=== PATIENT | female | born 1970 | race Caucasian/White ===

== ENCOUNTER → 2019-04-12 | Outpatient (CLI) | payer OTHER | LOC: ULTRA 11:25 | DX: K76.0 Fatty (change of) liver, not elsewhere classified (principal); K80.20 Calculus of gallbladder without cholecystitis without obstruction; R16.0 Hepatomegaly, not elsewhere classified ==

== ENCOUNTER 2019-05-30 09:38 | Day surgery (SDC) | payer OTHER ==
[~2019-05-30] VITALS: Ht 170.2 cm; Wt 108.4 kg
[~2019-05-30 09:38] MED LIST: ASPIR-LOW81 MG PO; CHLORTHALIDONE25 MG PO; LISINOPRIL20 MG PO; MEDROXYPRO150 MG/1 M IM; METFORMIN HCL500 M1 PO; ROSUVASTATIN CAL5 MG PO
[2019-05-30 10:29] LABS: CALCIUM 9.9 mg/dL (8.5-10.1); CREATININE 1.2 mg/dL (0.6-1.0); POTASSIUM 4.2 mmol/L (3.5-5.1)
[2019-05-30 11:04] VITALS: BP 135/74
[2019-05-30] MEDS ORDERED: NORCO 5-325 TA1 EAC2 PO (13:49)
[2019-05-30 14:27] VITALS: BP 135/74
--- NOTE | 2019-05-31 08:27 | EKG ---
[facility] [employer] [place] [address] ELECTROCARDIOGRAM REPORT Name: WORKMANMADHU PEREZ Room #: [facility]#: [id number] Admission: 05/30/19 Attend Phys: Cleve Chamberlain MD Discharge: 05/30/19 Date of : 74 Report #: [id number] THIS REPORT FOR: //name// 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
--- NOTE | 2019-05-31 09:19 | O ---
[facility] [place] [address] OPERATIVE REPORT Name: MADHU WORKMAN Room #: DEP [facility]#: [id number] Admission: 05/30/19 Attend Phys: Cleve Chamberlain MD Discharge: 05/30/19 Date of : 74 Report #: [id number] THIS REPORT FOR: //name// CC: Hussein Chamberlain DATE OF SERVICE: 05/30/2019 PRIMARY CARE PHYSICIAN: Hussein Restrepo MD PREOPERATIVE DIAGNOSIS: Symptomatic cholelithiasis. POSTOPERATIVE DIAGNOSIS: Symptomatic cholelithiasis. OPERATIVE PROCEDURE DONE: Laparoscopic cholecystectomy. OPERATING SURGEON: Cleve Chamberlain MD INDICATIONS FOR THE PROCEDURE: The patient is a 49-year-old female who presented with complaints of recurrent episodes of right upper quadrant pain. Clinical exam and ultrasound scan that was done showed features of symptomatic cholelithiasis. The patient was advised laparoscopic cholecystectomy. The patient showed understanding and agreed to proceed. DESCRIPTION OF PROCEDURE: After explaining to the patient in detail and informed consent was obtained, the patient was identified in the preoperative holding area. The patient was transferred to the operating room and was placed in supine position. Sequential compression devices were placed for DVT prophylaxis. Preoperative antibiotics were given. After induction of anesthesia, the abdomen was prepped and draped in a sterile fashion. Through a right upper quadrant 1 cm incision and using Optiview technique, peritoneal cavity was entered and pneumoperitoneum was created. Thereafter, under direct vision, another 5 mm trocar was placed through a supraumbilical incision. Another 5 mm trocar was placed in the epigastrium and one in the right lateral subcostal region. On initial inspection, the gallbladder appeared very distended. Gallbladder had to be decompressed with a laparoscopic needle and the patient was noted to have features of hydrops of the gallbladder. Most of the fluid that appeared pale white with some mixed purulent fluid. The gallbladder was then retracted and the peritoneal reflection along the neck of the gallbladder was gently dissected off. Cystic duct was identified and was isolated from the surrounding structures. Cystic artery was identified and was isolated from the surrounding structures. Cystic duct was then double clipped proximally and single clipped applied distally and was then divided. Cystic artery also was then divided in a similar fashion. The gallbladder was gently dissected off the liver bed using hook electrocautery. Absolute hemostasis was [address] [address] OPERATIVE REPORT Name: JIMADHU Room #: DEP [facility]#: [id number] Admission: 05/30/19 Attend Phys: Cleve Chamberlain MD Discharge: 05/30/19 Date of : 74 Report #: [id number] achieved. Thorough saline irrigation was given. The gallbladder was retrieved using an EndoCatch through the lateral most incision. Incisions were then closed with 4-0 Monocryl. Dermabond was applied. The patient was stable at the end of the procedure. The patient was awoken up from anesthesia and was transferred to the recovery room in stable condition. ESTIMATED BLOOD LOSS: Approximately 25 mL. CONDITION OF THE PATIENT: Stable. FLUIDS GIVEN: Per anesthesia notes. SPECIMEN SENT: Gallbladder. COMPLICATIONS: None. ANESTHESIA: General anesthesia. <ELECTRONICALLY SIGNED> By: Cleve Chamberlain MD 05/31/19 0919 1402 1421 Cleve Chamberlain MD /nt
--- NOTE | 2019-06-01 11:08 | PATH ---
[facility] [address] [place] [address] PATHOLOGY RPT PROCEDURE Name: MISSY WORKMAN Silas Room #: DEP [facility]..#: [id number] Admission: 05/30/19 Date of : 74 Discharge: 05/30/19 Report #: [id number] Path Case #: [id number] [facility] Accession Number: [id number] . 01 Material submitted: . gallbladder - GALLBLADDER . 01 Clinical history: . calculus of gallbladder without cholecystitis wihtout obstruction . 02 Diagnosis: Gallbladder, cholecystectomy: - Moderate acute hemorrhagic cholecystitis. - Cholelithiasis. - Focal cauterized hepatic parenchyma presented gallbladder bed showing nonspecific inflammation. . (IUV:mml; 05/31/2019) QLM 05/31/2019 1550 Local . 02 Electronically signed: . Luci Diaz MD, Pathologist NPI- [id number] . 01 Gross description: . The specimen is received in formalin, labeled "Missy Workman", "gallbladder". Received is an intact gallbladder measuring 9.8 x 3.5 x 2.8 cm. The external surface is wrinkled, shiny and pale [id number]. Opening the gallbladder reveals a pale pink-salazar, spongy, bile-stained mucosa. No solid masses or nodules are identified. The gallbladder wall ranges in thickness from 0.2 cm to 0.3 cm. Calculi are present and range in size from 0.5 cm to 1.2 cm. Toe Puller sections are submitted in cassette A1.(SNA; 05/30/2019) LI/MICHI 05/30/2019 1821 Local . 02 Pathologist provided ICD-10: K80.10 . 02 CPT . 318501 Specimen Comment: A courtesy copy of this report has been sent to [phone] Specimen Comment: [id number] Specimen Comment: Report sent to / DR QUILES Performed at: [address] [facility], [place] [id number] [address] [address] PATHOLOGY RPT PROCEDURE Name: MISSY WORKMAN Room #: DEP [facility] Noemi#: [id number] Admission: 05/30/19 Date of : 74 Discharge: 05/30/19 Report #: [id number] Path Case #: [id number] MD Luis Watson MD Phone: [phone] Performed at: [address], [place], [place] [id number] MD Luci Diaz MD Phone: [phone]
== END 2019-05-30 15:00 | disposition home or self-care (01) ==
LOC: TBA 09:38 → OR 09:38 → TBA 09:43 → OR 11:12
PROVIDERS: Surgery
DX: K80.00 Calculus of gallbladder with acute cholecystitis without obstruction (principal); R10.11 Right upper quadrant pain; I10 Essential (primary) hypertension; E78.5 Hyperlipidemia, unspecified; E11.9 Type 2 diabetes mellitus without complications; Z98.890 Other specified postprocedural states; Z79.899 Other long term (current) drug therapy; Z87.442 Personal history of urinary calculi; Z79.82 Long term (current) use of aspirin
CPT/HCPCS: 50010; 50101; 50249; 50411; 50555; 51489; 52265; 52266; 53307; 54022; 54118; 55245; 56462; 56525; 56526; 57257; 62110; 62900; 70005

== ENCOUNTER → 2021-04-09 | Outpatient (CLI) | payer OTHER ==
[~2021-04-09] MED LIST changes: +NORCO 5-325 TA1 EAC2 PO
[2021-04-09 09:42] LABS: CREATININE 1.1 mg/dL (0.6-1.0)
== END ==
LOC: CAT 08:04
PROVIDERS: ATTEND Nurse Practitioner
DX: J98.4 Other disorders of lung (principal); R59.0 Localized enlarged lymph nodes